=== PATIENT | male | born 1945 | race Caucasian/White ===

== ENCOUNTER → 2020-12-27 12:34 | Outpatient (CLI) | payer MEDICARE, OTHER, SELFPAY ==
--- NOTE | 2020-12-27 12:42 | CT_ITS ---
STUDY: CT SCAN LOWER EXTREMITY LEFT REASON FOR EXAM: Male, 75 years old. KNEE PAIN / OSTEOARTHRITIS.[facility] protocol. RADIATION DOSAGE (If Supplied By Facility): CTDIvol = ( 18.89 ) mGy, DLP = ( 1196.98 ) mGycm. Individualized dose optimization techniques were used for this CT.? TECHNIQUE: Multiple axial tomographic images of the left hip joint, knee joint and ankle joint were obtained. Coronal and sagittal reconstruction was obtained as well. COMPARISON: None. FINDINGS: There is evidence of degenerative changes of the left sacroiliac joint. Moderate degree of joint space narrowing of the right hip joint with evidence of marginal spur formation along the inferior medial aspect of the left femoral head. Imaging of the left knee joint was obtained. There is a marked degree of joint space narrowing with degenerative spur formation involving the medial compartment of the knee joint. There is also evidence of a myhj-yl-[id number] degree of joint space narrowing involving the patellofemoral joint with a prominent spur along the anterior distal femur. There is evidence of fusion in the proximal tibial fibular joint most likely secondary to an exostosis along the posterior aspect of the proximal tibia. 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 Imaging of the ankle joint was obtained. There is a marked degree of joint space narrowing and degenerative changes involving the tibial talar joint. There is abnormal appearance of the distal tibia most likely secondary to prior injury. CT/Extremity Lower without Contra IMPRESSION: Marked degree of joint space narrowing involving the medial compartment of the left knee joint as well as the patellofemoral joint as described. Marked degree of degenerative changes of the tibiotalar joint. 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 A vascular stent is seen within the popliteal artery. Electronically Signed: Gilmer Kennedy MD at 15:25 EDT , Service support ,
== END ==
PROVIDERS: Referring Provider Specialist; Visit Provider Specialist
DX: M17.12 Unilateral primary osteoarthritis, left knee (principal)
CPT/HCPCS: 73700

== ENCOUNTER 2021-01-05 07:03 | Observation (INO) | payer MEDICARE, OTHER, SELFPAY ==
--- NOTE | 2020-12-27 22:59 | PCM.HP.BLA ---
History and Physical History and Physical [facility] Patient Name: Isaías Benedict : 1945 From: GLENNY LOYA PA-C DATE OF SURGERY: 01/05/2021 SCHEDULED PROCEDURE: left total knee arthroplasty HISTORY OF PRESENT ILLNESS: Preoperative history and physical exam was performed on December 27, 2020. This is a 75-year-old male is been having ongoing pain for years in his left knee. He has previous history of a right total knee arthroplasty. His pain has been intermittent, dull, aching, sharp, stabbing, sore. Pain is increased with going up and down stairs and walking. Patient has difficulty with activities of daily living including getting dressed and walking. He states difficulty with sleeping due to the pain. Pain is primarily of the medial knee. Patient has been utilizing a cane for ambulatory assistance. Patient has also attempted rest and water exercises. Patient has tripped/stumbled due to the knee pain. He feels unsafe playing any sports or walking due to the pain. Patient has attempted physical therapy and home exercises with minimal relief. He denies previous surgery on the left knee. He has had left leg surgeries for femoral popliteal bypass. He has been using a cane for the past 9 months. Patient has medical history pertinent for chronic peripheral vascular disease, hypertension, abdominal aortic aneurysm, dyslipidemia, renal artery stenosis, restless legs, type 2 diabetes mellitus, previous history of DVT, neuropathy. We have obtained clearance from vascular doctor in which they do recommend Lovenox bridging prior and after surgery. They also strongly recommend against tourniquet used during his total knee replacement. Patient states he artery has prescription for the Lovenox pre-and post surgery. We have also obtain surgical clearance from the primary care physician. Patient was allowed to stop the Coumadin 5 days before surgery. Patient currently denies any chest pain, shortness of breath, fevers chills, recent infections. His last A1c was 7.9. Daily conservative measures and discussing treatment options with Dr. William Diana, patient does wish to proceed with a left total knee arthroplasty. REVIEW OF SYSTEMS: ROS: Const: Denies change in appetite, fever and weight change. CV: Denies chest pain, heart murmur and irregular heartbeat. Resp: Reports shortness of breath, but denies cough, pneumonia, tuberculosis and wheezing. GI: Denies constipation, diarrhea, heartburn, nausea, rectal itching, bloody stools and vomiting. : Denies incontinence. Musculo: Reports leg swelling, trouble walking and weakness, but denies pain. Skin: Denies Raynaud's, history of shingles and tattoo. Neuro: Reports numbness/tingling but denies ambulatory dysfunction, dizziness and tremor. Psych: Denies anxiety, insomnia and stress. Ruddy/Lymph: Reports bleeding/bruising tendency, but denies anemia and past transfusion. Reviewed and updated. PAST MEDICAL HISTORY: Advance Care Plan: No Advance Directives Effective Date: 12/27/2020 PMH: Medical Problems: Arthritis, Chronic Obstructive Pulmonary Disease (COPD), Diabetes, Hard of Hearing, History Of Blood Clots/ DVT, Kidney Disease/Renal Failure, Vascular Disease/ Peripheral, Neuropathy, Restless Leg Syndrome, Cervical Disc Degeneration, Abdominal Aortic Aneurysm, Atherosclerosis, Erectile Dysfunction, Mesenteric Artery Atenosis, Renal Artery Stenosis, Iliac Aneurysm, Stenosis Of Celiac Artery Accidents: Fracture - (1972) LT ANKLE Surgical Hx: Cataracts - (2016) LT EYE- Hernia Repair - UMBILICAL AND INGUINAL Carotid Endarterectomy Femoral Popiteal Bypass - (2017) [facility] Procedure - (2019) LT LEG Carpal Tunnel Release LT - (2018) Lumbar Fusion - DISCECTOMY Knee Replacement RT - (2012) [facility] DR. Cecelia ORTEGA Elbow Arthroscopy - REMOVAL OF FOREIGN BODIES LT Ankle - (1972) RECONSTRUCTION Anesthesia Complications: None Assistive Devices: Cane, Hearing Aid Reviewed and updated. SOCIAL HISTORY: SH: Marital: .Occupation: Retired.Work Status: Retired.Hand Dominance: Ambidextrous. Personal Habits: Cigarette Use: Former.Smokeless Tobacco: Never Used Smokeless Tobacco.E-Cigarette Use: Never used.Alcohol: Has consumed alcohol in the past.Drug Use: Denies Use.Enjoy Exercising: Exercises 1-3 X/Week. Reviewed and updated. VITALS: Ht: 73.9 Wt: 297lb Wt k.719 BMI: 38.2 BP: 142/88 Pulse: 82 Resp: 14 T: 97.5 T: 36.4C Pain Level: 1 ALLERGIES: No Known Drug Allergy MEDICATIONS: Metformin HCL 1000 mg 1 by mouth once daily at dinner, Lantus Insulin 40 Units 30 units once at bedtime, Pravastatin Sodium 80 mg 1 by mouth every day, Losartan Potassium 50 mg 1 by mouth every day, Flomax 0.4 mg 1 by mouth every day, Gabapentin 300 mg 1 by mouth three times a day, Jantoven 6 mg, Jantoven 1 mg, Furosemide 20 mg 1 by mouth every day, Potassium Chloride 10 Meq/50ML, Novolog daily PRE-OP EXAM: General appearance:NORMAL Other: Eyes: Conjunctivae and lids: NORMAL Pupils: ERR Ears, Nose, Mouth, and Throat: NORMAL Other: Inspection of lips, teeth and gums: NORMAL Other: Neck: Examination of neck: no masses noted. Respiratory: Assessment of respiratory effort: NORMAL Other: Auscultation of lungs: clear to auscultation no wheezes, rhonchi or rales. Cardiovascular: Auscultation of heart: regular rate and rhythm, no murmurs, gallops or rubs. Exam of carotid arteries: NORMAL Other: Gastrointestinal: Exam of abdomen: soft, nontender, nondistended bowel sounds present. PHYSICAL EXAMINATION: Patient does walk with an antalgic gait. Left knee is cool to touch that erythema or signs of infection. He has tenderness to palpation along the medial joint line. He has varus alignment. Range of motion: Lacks 20 full extension to 103 flexion. IMAGING STUDIES: X-rays of the left knee reveal varus alignment with medial joint space narrowing, subchondral sclerosis, osteophyte formation consistent with severe left knee osteoarthritis. IMPRESSION: 1. Severe left knee osteoarthritis 2. Type 2 diabetes mellitus 3. Chronic peripheral vascular disease 4. Hypertension 5. Hyperlipidemia 6. History of DVT 7. Neuropathy 8. Restless leg 9. Renal artery stenosis 10. History of abdominal aortic aneurysm PLAN: Dr. William Diana did discuss and review with the patient all treatment options including surgical versus nonsurgical options. Patient does wish to proceed with the above-stated procedure. Potential risks, benefits, and complications of the procedure were discussed in detail including but not limited to , infection, nerve and blood vessel damage, persistent pain, numbness, tingling, paresthesias, blood clot, pulmonary embolism, and requirement for possible further surgery. The patient expressed full understanding and has no further questions for the doctor. Patient does agree to proceed with the above-stated procedure and has signed the surgery consent form. We discussed the current risks associated with COVID 19. This does include the risk of exposure while in the hospital. Patient was reassured local hospitals have low infection rates and are taking all necessary precautions to avoid exposure to patients. In addition, we discussed strategies that can be used to help limit exposure including those that limit the patient's time in the hospital. Also using strategies to limit the patient's need for continued inpatient services after being discharged from the hospital. Patient was notified that we will need to comply with any screening or testing the hospital wishes to perform or that surgery may be delayed for any positive results. This dictation was created using voice recognition software. Phonetic and/or grammatical errors may exist. ___ I have re-examined the patient. There are no clinical changes since date of exam. ___ See progress notes for changes. ___ Dictated on admission Date: Time: Signature:
[2021-01-05] VITALS (16 sets, daily range): BP systolic 112–165; BP diastolic 55–91; PULSE 66–96; RESP 16–18; TEMP 36.1–36.8; O2SAT 92–99; BMI 36.5
[2021-01-05] MEDS: Lactated Ringers 1,000 ML 999 ML IV ×2 (05:45→10:00)
[2021-01-05] MEDS: Acetaminophen 500 MG Tablet 1000 MG PO ×3 (06:35→23:13)
[2021-01-05] MEDS: Gabapentin 600 MG Tablet PO (06:35)
--- NOTE | 2021-01-05 07:01 | OP.PCM_ITS ---
Report of Operation Date of Procedure: 01/05/21 Post-Operative Diagnosis: Left knee primary osteoarthritis Surgery/Procedure Performed:: Left knee minimally invasive Tourniquet lessrobotic assisted total knee replacement Description of Surgical Findings:: Stable knee with good patella tracking Surgeon: William Diana dairy equipment mechanic: Mingo Rice Type of Anesthesia: General Anesthesiologist: Brian Avelar Special Medications: 2 g Ancef, 2 g TXA lavage prior to closure, 10 mg Decadron, joint cocktail (5 mg Duramorph, 30 mL of 0.5% Ropivicaine, 1000 units of epinephrine, 30 mg of Toradol) Specimen's removed: Bony cuts Estimated Blood Loss (mL): 250 Fluids Replaced: 1200 mL crystalloid Description of Procedure: Implants used: 1. [place] size 7 triathlon cruciate retaining distal femoral press-fit component 2. Surjit size 7 press-fit tritanium tibial baseplate 3. Surjit X3 9 MM CS polyethylene 4. Surjit X3 40 MM asymmetric patella Brief history operative indications: 75-year-old M with history of left knee osteoarthritis with radiographic findings with loss of joint space, osteophyte formation and subchondral sclerosis. Failed conservative measures as mentioned in the H&P. Discussion of total knee arthroplasty as well as risk and benefits were discussed the patient including but not limited to blood loss, DVTs, PEs, neurovascular damage, general risk of anesthesia including loss of life, and stiffness or instability were discussed with patient. Patient demonstrated understanding and was able to sign informed consent. Procedure: On the date of procedure patient's left lower extremity was marked in the preoperative area. The patient was then taken back to the operating room where the patient was placed on the table in the supine position. All bony prominences were identified a well-padded. Anesthesia assumed control of the C-spine and airway and remained controlled throughout the remainder of the procedure. A tourniquet was loosely placed on the left upper thigh in the event that it was needed for emergency purposes and the leg was prepped in a sterile fashion. The surgeon then scrubbed at this time .Upon reentering the room left lower extremity was draped in a standard orthopedic fashion. A timeout was then called and everyone agreed upon the side, the site, the procedure to be performed, patient's identity and antibiotics given. Due to the patient's significant peripheral vascular disease we elected to proceed with a tourniquet was total knee replacement. A midline skin incision was made and sharp dissection was taken down through skin subcutaneous tissue and fat. The standard medial parapatellar incision was made and the patella was subluxed laterally. An Appropriate deep MCL release was done and the fat pad was resected. Our attention was then directed to the patella. The patella was everted and a flat resection was made. The knee was then flexed up in 2 femoral pins were placed inside the incision and 2 tibial pins were placed outside the incision in the medial tibia bicortically. Once this was completed the 2 checkpoints in the femur and tibia were placed. Knee was then flexed up and the bony landmarks were registered. Once this was completed knee was taken through range of motion and manually stressed allowing us to a plan for an appropriate tibial cut. The robotic arm was brought into the field sterilely and checkpoint and saw were registered. Based on the patient's deformity the tibial cut was made in 1 degree of varus. At this time the tensioner was then placed in the joint and ligament tension was checked at 90 degrees and full extension. Based on the patient's ligamentous tension appropriate adjustments were made to the operative plan and ligament releases were done. Once we were happy with our operative plan with balanced flexion and extension gaps our attention was directed to the femur. The robot was brought into the field sterilely and registered. Posterior condylar cuts, anterior chamfer cuts and anterior cuts were appropriately made for a size 7 femur. When these were completed the saws were switched out in the distal femoral and posterior chamfer cuts were made. Protecting the soft tissue throughout this time. A size 7 tibial base plate was selected. the knee was flexed to 90 degrees and the soft tissues and posterior osteophytes were removed from the joint. 40 cc of the periarticular injection was injected into the posterior medial corner of the joint. The appropriate trials were then placed on the femur and tibia. A trial polyethylene was trialed to ensure proper balancing and stability of the knee. The appropriate tibial internal rotation was then marked with a bovie. Our attention was then directed to the patella. The lug holes were drilled and the patella trial was placed. Patellar tracking was checked and deemed appropriate. Once we were happy lug holes were drilled for the femur and trial components were removed. the tibia was subluxed and pinned into place and the keel was punched and drilled appropriately. Final components were verified and opened, and cement was mixed in a vacuum. [employer] Simplex cement was used. The wound was copiously irrigated with normal saline. When the cement was ready the components were impacted into place starting with the tibia, femur and finally cementing the patella. The trial poly component was placed and the knee was placed in full extension. All excess cement was removed in the process. Once the cement had cured the tracking, alignment and balance were verified and a size 9 mm CS polyethylene component was placed. Once the final components were placed a 3-minute dilute Betadine lavage was performed followed by an Irrisept lavage was performed and the wound was copiously irrigated with normal saline solution and the periarticular injection was given. The wound was closed in a layer france fashion using #1 vicryl interrupted sutures for the arthrotomy, 2-0 interrupted Vicryl suture for the subcuticular layer and mirela for final skin closure. A sterile compressive dressing was then placed. The patient was then awakened from anesthesia, transferred to the rpekin and transferred to the PACU for recovery. Post op plan DVT ppx: ASA 81mg BID, thigh high compression stockings Follow up: in office in 2 weeks for wound check PT: to start POD #0 at hospital, outpatient PT should be arranged. My physician assistant professor was a vital part of this case. He was important in appropriate retraction during the case, and protection of soft tissues during bony cuts. His intimate knowledge of the case and my steps aided in safe and e xpedient completion of the procedure as well as appropriate position of the leg during the case. He was also vital in assisting with closure under my direct supervision. Due to the complexity of this case robotic arm was used to assist in the surgery to improve accuracy and clinical outcomes. Complications No intraoperative complications Admit VTE Documentation VTE Present on Admission: No VTE Mechan Device Prophylaxis: SCD's and Thigh High JOSE Hose VTE Pharm Prophylaxis ordered?: Yes
[2021-01-05 07:05] LABS: Bedside Glucose 162 mg/dL (70-110)
--- NOTE | 2021-01-05 07:05 | RAD_ITS ---
STUDY: X-RAY - LEFT KNEE REASON FOR EXAM: Postoperative evaluation of left total knee arthroplasty. TECHNIQUE: 2 view(s) of the knee. COMPARISON: CT images 12/27/2020. FINDINGS: There is a left total knee arthroplasty without evidence of complication. There is postoperative gas in the soft tissues and overlying skin mirela. There is vascular calcification and a vascular stent. RAD/Knee 1 or 2 Views IMPRESSION: Uncomplicated left total knee arthroplasty. Electronically Signed: Kevin Recinos MD at 11:09 EDT Tel , Service support ,
[2021-01-05 07:35] LABS: International Normalized Ratio 1.1
[2021-01-05 07:41] LABS: INR Fingerstick 3.2; Prothrombin Time Fingerstick 35.5 SEC (11.9-14.4)
[2021-01-05] MEDS: Insulin Lispro 100 UNIT/ML INSULN.PEN SC ×3 (11:22→23:11)
[2021-01-05 11:35] LABS: Bedside Glucose 223 mg/dL (70-110)
[2021-01-05] MEDS: Lactated Ringers 1,000 ML 125 ML IV ×2 (12:01→20:59)
[2021-01-05] MEDS: Tamsulosin HCl 0.4 MG Capsule 0.8 MG PO (13:08)
[2021-01-05] MEDS: Famotidine 20 MG Tablet PO (13:09)
[2021-01-05] MEDS: metFORMIN HCl 1,000 MG Tablet 1000 MG PO (13:09)
[2021-01-05] MEDS: Ensure Surgery 237 ML LIQUID PO ×2 (13:09→16:42)
[2021-01-05] MEDS: Senna/Docusate Sodium 1 Tablet 2 TABLET PO ×2 (13:10→23:13)
[2021-01-05] MEDS: Pravastatin 80 MG Tablet PO (13:10)
[2021-01-05] MEDS: Furosemide 20 MG Tablet PO (13:10)
[2021-01-05] MEDS: Gabapentin 300 MG Capsule PO ×2 (14:22→23:13)
--- NOTE | 2021-01-05 14:35 | PCM.PN.HOSP ---
Subjective Subjective Consult for post-op medical management: 75-year-old male with past medical history of CVA type II DM, hypertension, PAD status post grafts and stents, abdominal aortic aneurysm, hyperlipidemia who comes in for elective left knee replacement. Patient has had progressive difficulty with activities of daily living. Patient was seen in the immediate postop. He denied any chest pain or dizziness or palpitations. His pain was fairly controlled. He was getting ready to exercise with PT and OT Objective Data Objective Data Vital Signs: Vital Signs Temp Pulse Resp BP Pulse Ox 97.6 F L 66 16 141/57 H 96 01/05/21 14:25 01/05/21 14:25 01/05/21 14:25 01/05/21 14:25 01/05/21 14:25 Oxygen Flow Rate (L/min) 2 Oxygen Delivery Method Room Air Weight: 136.2 kg Body Mass Index (BMI) 36.5 Intake & Output: Intake and Output for Last 24 Hours 01/03/21 01/04/21 01/05/21 23:59 23:59 23:59 Intake Total 3641.25 / 3641.25 Balance 3641.25 / 3641.25 Lab / Micro Data Labs: Laboratory Results - last 24 hr 01/05/21 06:13: POC Glucose 162 H 01/05/21 07:07: POC PT 35.5 H, INR 3.2 01/05/21 07:14: PT 14.0, INR 1.1 01/05/21 11:09: POC Glucose 223 H Micro: Microbiology 12/31/20 08:22 Swab (Method) Nasal Screen MRSA/MSSA - Final Radiography Diagnostic Testing: Radiology Impression Knee X-Ray 01/05/21 07:05 IMPRESSION: Uncomplicated left total knee arthroplasty. Electronically Signed: Kevin Recinos MD at 11:09 EDT Tel , Service support , Physical Exam Narrative Physical exam: General: Alert, Oriented x3, Cooperative, No apparent distress, Well developed, obese HEENT: Atraumatic Oral: Moist Mucosa Neck: Supple Lungs: Clear to auscultation Cardiovascular: HS I+II, regular, no murmurs Abdomen: Bowel Sounds Present, Soft, Non Tender Extremities: Left knee dressing intact,: Simply Assessment & Plan Assessment/Plan (1) Status post left knee replacement: PLAN: 1. POD #0 status post left knee replacement, pain is controlled Continue with orthopedic recommendations, PT/OT to evaluate and treat 2. Hypertension, controlled, continue on losartan 3. Type II DM, complicated by peripheral neuropathy ,controlled, Continue on Lantus, hold Metformin, continue with insulin sliding scale Continue on gabapentin 4. Rest of his chronic medical conditions -PAD status post implants and grafts/abdominal aortic aneurysm/hyperlipidemia/BPH- remain stable 5. DVT PPx- on warfarin Charges/Coding Visit Charges Inpatient E&M: 53830 Init Hosp L2
[2021-01-05] MEDS: Insulin Lispro 100 UNIT/ML INSULN.PEN 10 UNIT SC (16:42)
[2021-01-05 16:50] LABS: Bedside Glucose 323 mg/dL (70-110)
[2021-01-05 18:17] LABS: Anion Gap 7 (5-15); BUN 21 mg/dL (7-18); BUN/Creat Ratio 18.9 RATIO (10-20); Calcium,Total 7.9 mg/dL (8.5-10.1); Chloride 104 mmol/L (98-107); Creatinine, Serum 1.11 mg/dL (0.70-1.30); EST Glomerular Filtration Rate 68 mL/min (>60); Est Glom Filt Rate - Afr Amer 83 mL/min (>60); Estimated Creatinine Clearance 68.42 ml/min; Glucose 299 mg/dL (74-106); Potassium 5.2 mmol/L (3.5-5.1); Sodium Level 136 mmol/L (136-145)
[2021-01-05 23:05] LABS: Bedside Glucose 168 mg/dL (70-110)
[2021-01-05] MEDS: 0.9% Saline Lock 10 ML Syringe IV ×2 (23:12→23:35)
[2021-01-06 03:45] VITALS: BP 145/77; PULSE 70; RESP 18; TEMP 36.4; O2SAT 96
[2021-01-06] MEDS: Lactated Ringers 1,000 ML 125 ML IV (06:07)
[2021-01-06] MEDS: Acetaminophen 500 MG Tablet 1000 MG PO ×2 (06:11→14:01)
[2021-01-06] MEDS: Gabapentin 300 MG Capsule PO ×2 (06:12→14:01)
[2021-01-06] MEDS: 0.9% Saline Lock 10 ML Syringe IV (06:12)
[2021-01-06 07:05] LABS: Hematocrit 31.3 % (40-54); Hemoglobin 10.1 g/dL (13.0-16.5); Mean Corp Hgb Conc 32.3 g/dL (32-36); Mean Corpuscular Hgb 31.3 pg (27.0-32.0); Mean Corpuscular Volume 96.9 fL (80-94); Mean Platelet Vol. 10.2 fl (6.2-12.0); Platelet Count 121 K/mm3 (150-450); RBC Distribution Width CV 14.6 % (11.6-14.6); RBC Distribution Width SD 52.1 fl (35.1-43.9); Red Blood Count 3.23 M/mm3 (4.6-6.2); White Blood Count 7.2 K/mm3 (4.4-11.0)
[2021-01-06 07:23] LABS: International Normalized Ratio 1.1; Prothrombin Time (Protime)PT. 13.9 SECONDS (11.7-14.9)
[2021-01-06 07:31] LABS: Anion Gap 4 (5-15); BUN 18 mg/dL (7-18); BUN/Creat Ratio 22.3 RATIO (10-20); Calcium,Total 7.9 mg/dL (8.5-10.1); Chloride 109 mmol/L (98-107); Creatinine, Serum 0.81 mg/dL (0.70-1.30); EST Glomerular Filtration Rate 99 mL/min (>60); Est Glom Filt Rate - Afr Amer 119 mL/min (>60); Estimated Creatinine Clearance 93.77 ml/min; Glucose 124 mg/dL (74-106); Potassium 4.4 mmol/L (3.5-5.1); Sodium Level 140 mmol/L (136-145)
[2021-01-06 08:11] VITALS: BP 129/53; PULSE 65; RESP 16; TEMP 36.7; O2SAT 96
[2021-01-06] MEDS: Insulin Lispro 100 UNIT/ML INSULN.PEN 10 UNIT SC ×2 (08:14→12:48)
[2021-01-06] MEDS: Ensure Surgery 237 ML LIQUID PO ×2 (08:15→12:48)
--- NOTE | 2021-01-06 09:04 | PN.ORTHO_ITS ---
Subjective Subjective The patient was sitting in bedside chair upon examination. Patient denies any chest pain, shortness of breath, dizziness, lightheadedness, nausea or vomiting, or calf pain. Pain is controlled on medications. No adverse overnight events. Overall patient is doing very well. He states he has been walking the halls. He did have drainage over the distal pin site dressing which did saturate some of the JOSE hose. He has no complaints today. He is wanting to go home today. Objective Data Objective Data Vital Signs: Vital Signs Temp Pulse Resp BP Pulse Ox 98.0 F 65 16 129/53 H 96 01/06/21 08:11 01/06/21 08:11 01/06/21 08:11 01/06/21 08:11 01/06/21 08:11 Oxygen Flow Rate (L/min) 2 Oxygen Delivery Method Room Air Weight: 136.2 kg Body Mass Index (BMI) 36.5 Intake & Output: Intake and Output for Last 24 Hours 01/04/21 01/05/21 01/06/21 23:59 23:59 23:59 Intake Total 4310.42 / 4425.42 1390 / 1390 Output Total 1300 / 1300 785 / 785 Balance 3010.42 / 3125.42 605 / 605 Lab / Micro Data Result Diagrams: 01/06/21 06:45 01/06/21 06:45 Labs: Laboratory Results - last 24 hr 01/05/21 11:09: POC Glucose 223 H 01/05/21 16:14: POC Glucose 323 H 01/05/21 17:40: Sodium 136, Potassium 5.2 H, Chloride 104, Carbon Dioxide 25.0, Anion Gap 7, BUN 21 H, Creatinine 1.11, Estim Creat Clear Calc 68.42, Est GFR (MDRD) Af Amer 83, Est GFR (MDRD) Non-Af 68, BUN/Creatinine Ratio 18.9, Glucose 299 H, Calcium 7.9 L 01/05/21 22:57: POC Glucose 168 H 01/06/21 06:45: WBC 7.2, RBC 3.23 L, Hgb 10.1 L, Hct 31.3 L, MCV 96.9 H, MCH 31.3, MCHC 32.3, RDW Std Deviation 52.1 H, RDW Coeff of Oma 14.6, Plt Count 121 L, MPV 10.2 01/06/21 06:45: Sodium 140, Potassium 4.4, Chloride 109 H, Carbon Dioxide 27.0, Anion Gap 4 L, BUN 18, Creatinine 0.81, Estim Creat Clear Calc 93.77, Est GFR (MDRD) Af Amer 119, Est GFR (MDRD) Non-Af 99, BUN/Creatinine Ratio 22.3 H, Glucose 124 H, Calcium 7.9 L 01/06/21 06:45: PT 13.9, INR 1.1 Micro: Microbiology 12/31/20 08:22 Swab (Method) Nasal Screen MRSA/MSSA - Final Radiography Diagnostic Testing: Radiology Impression Knee X-Ray 01/05/21 07:05 IMPRESSION: Uncomplicated left total knee arthroplasty. Electronically Signed: Kevin Recinos MD at 11:09 EDT Tel , Service support , Physical Exam Narrative Vital signs stable and afebrile. Patient is able to plantarflex and dorsiflex actively. Sensation is intact to light touch to saphenous, sural, superficial and deep peroneal, and tibial distribution. Main dressing is clean dry and intact. The distal pin site dressing is completely saturated. This was removed. Drainage was old with dried bloody discharge. No active drainage. JOSE hose was removed and patient will require new JOSE hose. New dressing was placed over the distal pin site. Negative Homans bilaterally, negative signs and symptoms of DVT. Const alert, oriented x3 and no apparent distress Assessment & Plan Assessment/Plan (1) Status post left knee replacement: PLAN: 1. S/P left total knee arthroplasty POD #1 2. Continue Pain Medications: Tylenol and oxycodone 3. DVT Prophylaxis: Patient has been placed back on his Coumadin. He already has Lovenox from his primary care physician in which she will continue to take until he is at therapeutic levels. Patient is from [place] and we will repeat INR in 1 week. 4. PT/OT: Weightbearing as tolerated with walker 5. H & H: 10.1/31.3, asymptomatic. Postoperative anemia secondary to acute blood loss from surgery without any intra operative complications. 6. Thrombocytopenia: Currently 121, preoperatively platelets were at 161. We will have patient repeat CBC in 1 week. 7. Encouraged Incentive Spirometry 8. Continue postoperative medical management per medicine 9. Disposition: Patient is doing very well from an orthopedic standpoint. He has already placed back on his Coumadin. He has bridging of Lovenox which is currently being managed by his primary care physician. He has those Lovenox inj ections for postoperatively. At this time we will repeat INR and CBC 1 week postoperatively. Order will be placed. Plan will be for patient to be discharged today as long as he is medically stable, pain is well controlled, and tolerates therapy. Prescriptions will be E scribed to [facility]. He has outpatient physical therapy established. He will follow-up per postop instructions.\ I have reviewed the [place] Automated Rx Reporting System (OARRS) report for this patient for refill pattern and other prescriber involvement as part of the appropriate surveillance for the provision of acute and chronic controlled medications. The report was requested and reviewed on the date of this entry and was considered in the prescribing process.
--- NOTE | 2021-01-06 09:09 | PCM.DC ---
Discharge Instructions Diet Discharge Diet: No restrictions Activity Discharge Activity: May Not Drive (while taking narcotic pain medications.) May shower in (days): 1 (Please turn dressing away from water. Okay to get wet as long as dressing is intact to skin.) Ice area for (Minutes): 20 (Every 1-2 hours while awake[address] place barrier between the skin and ice pack.) Weight Bearing Status: Weight bearing as tolerated Keep extremity elevated above heart level: Operative Extremity Dressing / Incision Call your doctor if your incision/area has: Continuous Slow Oozing, Sudden Increased Bleeding, Increased Pain/ Swelling, Increased Redness and Foul Smelling Discharge Call your doctor if you observe: Fever of 101 or Higher, Coldness, Increased Pain, Numbness or Tingling, Change in Color, Shortness of breath, Chest pain, Calf discomfort and Uncontrolled pain Remove Dressing in: 4 days (Okay to remove dressing on January 10, 2021) Additional Dressing/Incision Instructions:: Follow [facility] Post-op Instructions. Once postoperative dressing has been removed only use gentle soap and water over the incision. Do not use any ointments, Neosporin, salves, alcohol pads over the incision for 6 weeks postoperatively. Do not submerge underwater for 6 weeks postoperatively. Continue with JOSE hose/elastic stockings for 2 weeks postoperatively. May remove at nighttime but needs to be placed back on the leg during the day. Do NOT use alcohol with narcotic pain medication. Do NOT make important decisions while taking narcotic medication. If you have problems with taking your medication (rash, itching, nausea, etc.) call the office at once. Continue bridging of Lovenox until he has reached therapeutic levels with his Coumadin treatment. He will follow back with his primary care physician. Follow Up Care Test Results: Test results from this visit will be discussed in further detail at your follow-up appointment, if applicable. Discharge Plan Admission Admit Date/Time: 01/05/21 07:03 Attending Provider: William Diana Consulting Providers: Allyson Amaya Instructions Additional Instructions / Restrictions: Will require outpatient lab work for CBC and INR in 1 week Discharge Orders/Prescriptions Prescriptions: New acetaminophen 500 mg Tablet 1,000 mg PO TID 14 Days Qty: 84 RF: 0 oxycodone 5 mg Tablet 5 - 10 mg PO Q4H PRN PRN (Reason: Pain Score 4-10) 7 Days Qty: 42 RF: 0 sennosides-docusate sodium [Stool Softener-Stimulant Laxat] 8.6-50 mg Tablet 2 tab PO BID Qty: 14 RF: 0 Continued losartan 50 mg Tablet 50 mg PO DAILY RF: 0 potassium chloride 10 mEq Capsule, Extended Release 10 meq PO DAILY RF: 0 warfarin [Jantoven] 6 mg Tablet 6 mg PO DAILY RF: 0 pravastatin 80 mg Tablet 80 mg PO DAILY RF: 0 tamsulosin [Flomax] 0.4 mg Capsule 0.8 mg PO DAILY RF: 0 insulin aspart U-100 [Novolog U-100 Insulin aspart] 100 unit/mL Solution 10 unit SUBCUT TID RF: 0 metformin 1,000 mg Tablet 1,000 mg PO DAILY RF: 0 gabapentin 300 mg Capsule 300 mg PO TID RF: 0 furosemide 20 mg Tablet 20 mg PO DAILY RF: 0 warfarin [Jantoven] 1 mg Tablet 1 mg PO DAILY RF: 0 enoxaparin [Lovenox] 100 mg/mL Syringe 200 mg SUBCUT DAILY RF: 0 insulin glargine 100 unit/mL (3 mL) Insulin Pen 30 unit SUBCUT QPM RF: 0 Other Ambulatory Orders: CBC-Complete Blood Cnt No Diff (Routine) Timeframe: 1 Week Facility: [facility] - Location: Laboratory Ordered By: Mingo DOMINIQUE Prothrombin Time w/INR (Routine) Timeframe: 1 Week Facility: [facility] - Location: Laboratory Ordered By: Mingo DOMINIQUE Referrals / Follow Up: ROBIN BARRERA [Other] physical,therapy [Other] - 01/10/21 7:00 am William Diana MD [STAFF PHYSICIAN] - 01/20/21 9:15 am Disposition Disposition (needs filled in before D/C Order can be placed): Home, Self Care
[2021-01-06 10:06] LABS: Bedside Glucose 132 mg/dL (70-110)
[2021-01-06] MEDS: Famotidine 20 MG Tablet PO (10:17)
[2021-01-06] MEDS: Tamsulosin HCl 0.4 MG Capsule 0.8 MG PO (10:17)
[2021-01-06] MEDS: Senna/Docusate Sodium 1 Tablet 2 TABLET PO (10:17)
[2021-01-06] MEDS: Furosemide 20 MG Tablet PO (10:17)
[2021-01-06] MEDS: Pravastatin 80 MG Tablet PO (10:17)
[2021-01-06] MEDS: Losartan Potassium 50 MG Tablet PO (10:17)
[2021-01-06] MEDS: Enoxaparin 100 MG/ML Syringe 200 MG SC (10:19)
[2021-01-06 10:20] VITALS: PULSE 100
--- NOTE | 2021-01-06 11:45 | CASEMGMT ---
PEREZ TORRES Face to Face with patient for initial transition planning/care coordination assessment. RN MELISSA introduced self and role at [facility]. Patient lying in bed, alert and oriented, at bedside. Patient willing to participate in assessment and is able to answer all questions appropriately. Care providers, pharmacy, and demographics verified. Patient wishes to discharge home and is setup with [facility] for outpatient therapy. Patient states he has no further needs or concerns at this time. CM to follow for discharge planning needs that may arise. PCP: Kathy Shah [employer] Specialists: edna Diana Preferred Pharmacy: [facility] retail Insurance: [employer] Prescription Benefit: yes Living Will/HPOA: yes, Danielle Benedict LNOK: , daughter Living Arrangements: Patient lives in [place] but will be staying with daughter in [place] for 2 weeks. Daughter lives in a 1 story home with 2 steps to enter. Patient states he was independent at home. Transportation: /daughter DME/HHC: Patient has walker with him here. Back in [place], patient has shower chair, grab bars, raised toilet seat, cane, walker. Patient is scheduled to start outpatient therapy on Sunday at [facility] Disposition Plan: Patient to discharge home with outpatient therapy, family support, and follow-up plans in place. Lianne GAY, RN, CM
--- NOTE | 2021-01-06 11:49 | CASEMGMT ---
PEREZ CM in to complete LUTHER form with patient. RN MELISSA explained LUTHER form to patient, patient voiced understanding. Patient signed LUTHER form and filed in chart. Patient provided with copy of signed LUTHER form. Patient had no further questions or concerns at this time.
--- NOTE | 2021-01-06 12:12 | PCM.PN.HOSP ---
Subjective Subjective Patient was seen and examined. Denied any new complaints. He has been working with therapy. Denied any fever or chills. Objective Data Objective Data Vital Signs: Vital Signs Temp Pulse Resp BP Pulse Ox 98.0 F 100 16 129/53 H 96 01/06/21 08:11 01/06/21 10:20 01/06/21 08:11 01/06/21 08:11 01/06/21 08:11 Oxygen Flow Rate (L/min) 2 Oxygen Delivery Method Room Air Weight: 136.2 kg Body Mass Index (BMI) 36.5 Intake & Output: Intake and Output for Last 24 Hours 01/04/21 01/05/21 01/06/21 23:59 23:59 23:59 Intake Total 4310.42 / 4425.42 1390 / 1390 Output Total 1300 / 1300 785 / 785 Balance 3010.42 / 3125.42 605 / 605 Lab / Micro Data Result Diagrams: 01/06/21 06:45 01/06/21 06:45 Labs: Laboratory Results - last 24 hr 01/05/21 16:14: POC Glucose 323 H 01/05/21 17:40: Sodium 136, Potassium 5.2 H, Chloride 104, Carbon Dioxide 25.0, Anion Gap 7, BUN 21 H, Creatinine 1.11, Estim Creat Clear Calc 68.42, Est GFR (MDRD) Af Amer 83, Est GFR (MDRD) Non-Af 68, BUN/Creatinine Ratio 18.9, Glucose 299 H, Calcium 7.9 L 01/05/21 22:57: POC Glucose 168 H 01/06/21 06:45: WBC 7.2, RBC 3.23 L, Hgb 10.1 L, Hct 31.3 L, MCV 96.9 H, MCH 31.3, MCHC 32.3, RDW Std Deviation 52.1 H, RDW Coeff of Oma 14.6, Plt Count 121 L, MPV 10.2 01/06/21 06:45: Sodium 140, Potassium 4.4, Chloride 109 H, Carbon Dioxide 27.0, Anion Gap 4 L, BUN 18, Creatinine 0.81, Estim Creat Clear Calc 93.77, Est GFR (MDRD) Af Amer 119, Est GFR (MDRD) Non-Af 99, BUN/Creatinine Ratio 22.3 H, Glucose 124 H, Calcium 7.9 L 01/06/21 06:45: PT 13.9, INR 1.1 01/06/21 08:12: POC Glucose 132 H Micro: Microbiology 12/31/20 08:22 Swab (Method) Nasal Screen MRSA/MSSA - Final Physical Exam Narrative Physical exam: General: Alert, Oriented x3, Cooperative, No apparent distress, Well developed, obese HEENT: Atraumatic Oral: Moist Mucosa Neck: Supple Lungs: Clear to auscultation Cardiovascular: HS I+II, regular, no murmurs Abdomen: Bowel Sounds Present, Soft, Non Tender Extremities: Left knee dressing intact,: Simply Assessment & Plan Assessment/Plan (1) Status post left knee replacement: PLAN: 1. POD #1 status post left knee replacement, pain is controlled, patient is ambulating down the halls Continue with orthopedic recommendations, PT/OT to evaluate and treat 2. Hypertension, controlled, continue on losartan 3. Type II DM, complicated by peripheral neuropathy ,controlled, Continue on Lantus, okay to resume Metformin at discharge, continue with insulin sliding scale Continue on gabapentin 4. Rest of his chronic medical conditions -PAD status post implants and grafts/abdominal aortic aneurysm/hyperlipidemia/BPH- remain stable 5. DVT PPx- on warfarin/Lovenox bridging; INR is 1.1 Okay for discharge from medical standpoint Charges/Coding Visit Charges Inpatient E&M: 55759 Subs Hosp L2
[2021-01-06] MEDS: Potassium Chloride Oral Tablet 10 MEQ PO (12:52)
[2021-01-06 14:13] VITALS: BP 122/54; PULSE 100; RESP 18; TEMP 37.2; O2SAT 98
== END 2021-01-06 14:40 | disposition home or self-care (01) ==
LOC: SDC 11:55 → MS3 11:55
PROVIDERS: Anesthesiology; Internal Medicine; Admitting Provider Specialist; Referring Provider Specialist; Visit Provider Specialist
PROC: 0SRD0JZ Replacement of Left Knee Joint with Synthetic Substitute, Open Approach (ICD-10-PCS; CPT 27447; principal; 2021-01-05 07:00)
DX: M17.12 Unilateral primary osteoarthritis, left knee (principal); E11.9 Type 2 diabetes mellitus without complications; E11.51 Type 2 diabetes mellitus with diabetic peripheral angiopathy without gangrene; E11.42 Type 2 diabetes mellitus with diabetic polyneuropathy; E78.5 Hyperlipidemia, unspecified; I10 Essential (primary) hypertension; G25.81 Restless legs syndrome; J44.9 Chronic obstructive pulmonary disease, unspecified; I70.1 Atherosclerosis of renal artery; Z87.891 Personal history of nicotine dependence; Z79.899 Other long term (current) drug therapy; Z86.718 Personal history of other venous thrombosis and embolism; Z79.01 Long term (current) use of anticoagulants; Z79.4 Long term (current) use of insulin; Z86.73 Personal history of transient ischemic attack (TIA), and cerebral infarction without residual deficits; N40.0 Benign prostatic hyperplasia without lower urinary tract symptoms; D69.6 Thrombocytopenia, unspecified
CPT/HCPCS: 01402; 27447; 64447; S2900; 36415; 36416; 73560; 80048; 82962; 83735; 85027; 85610; 87081; 96361; 96365; 96366; 96372; 97110; 97162; 97166; 97530; 97535; 99218; 99251; C1776; J7120; A4216; G0378; G0463; J2405

== ENCOUNTER → 2021-01-07 10:58 | Outpatient (CLI) | payer MEDICARE, OTHER, SELFPAY ==
[2021-01-07 11:41] LABS: International Normalized Ratio 1.2; Prothrombin Time (Protime)PT. 14.9 SECONDS (11.7-14.9)
== END ==
DX: Z95.820 Peripheral vascular angioplasty status with implants and grafts (principal)
CPT/HCPCS: 36415; 85610

== ENCOUNTER 2021-01-14 08:42 | Outpatient (RCR) | payer MEDICARE, OTHER, SELFPAY ==
[2021-01-08 12:08] LABS: International Normalized Ratio 1.2; Prothrombin Time (Protime)PT. 14.3 SECONDS (11.7-14.9)
[2021-01-10 09:58] LABS: Hematocrit 28.7 % (40-54); Hemoglobin 9.4 g/dL (13.0-16.5); Mean Corp Hgb Conc 32.8 g/dL (32-36); Mean Corpuscular Hgb 31.8 pg (27.0-32.0); Mean Platelet Vol. 10.6 fl (6.2-12.0); Platelet Count 196 K/mm3 (150-450); RBC Distribution Width CV 15.5 % (11.6-14.6); RBC Distribution Width SD 55.1 fl (35.1-43.9); Red Blood Count 2.96 M/mm3 (4.6-6.2); White Blood Count 6.9 K/mm3 (4.4-11.0)
[2021-01-10 10:08] LABS: International Normalized Ratio 1.5
[2021-01-12 08:53] LABS: Prothrombin Time (Protime)PT. 22.3 SECONDS (11.7-14.9)
[2021-01-14 09:44] LABS: Hematocrit 31.2 % (40-54); Hemoglobin 9.8 g/dL (13.0-16.5); Mean Corp Hgb Conc 31.4 g/dL (32-36); Mean Corpuscular Hgb 31.2 pg (27.0-32.0); Mean Corpuscular Volume 99.4 fL (80-94); Platelet Count 300 K/mm3 (150-450); RBC Distribution Width CV 16.2 % (11.6-14.6); RBC Distribution Width SD 57.7 fl (35.1-43.9); Red Blood Count 3.14 M/mm3 (4.6-6.2); White Blood Count 7.3 K/mm3 (4.4-11.0)
[2021-01-14 10:00] LABS: International Normalized Ratio 2.8
== END 2021-01-14 18:00 | disposition home or self-care (01) ==
LOC: LAB 08:42
PROVIDERS: Specialist
DX: Z95.820 Peripheral vascular angioplasty status with implants and grafts (principal)
CPT/HCPCS: 36415; 85027; 85610

== ENCOUNTER 2021-01-21 08:42 | Outpatient (RCR) | payer MEDICARE, OTHER, SELFPAY ==
[2021-01-21 10:00] LABS: International Normalized Ratio 4.1
[2021-01-21 10:13] LABS: Prothrombin Time (Protime)PT. 38.9 SECONDS (11.7-14.9)
== END 2021-01-21 18:00 | disposition home or self-care (01) ==
LOC: LAB 08:42
DX: Z95.820 Peripheral vascular angioplasty status with implants and grafts (principal); Z96.652 Presence of left artificial knee joint; Z79.01 Long term (current) use of anticoagulants
CPT/HCPCS: 36415; 85610

== ENCOUNTER 2025-03-11 08:25 | Observation (INO) | payer MEDICARE, OTHER, SELFPAY ==
--- NOTE | 2025-02-25 15:18 | PAT.ANESEVAL ---
Pre-Assessment Diagnosis/Proposed Procedure Planned Operative Procedure(s): (N/A) Cysto,Transurethral Resection Prostate Anesthesia History Anesthesia History - personal lines underwriter: Anesthesia History - personal lines underwriter Hx Hospitalization No 02/25/25 13:15 Any Problems With Anesthesia No 02/25/25 13:15 Cholinesterase deficiency No 02/25/25 13:15 You/Your Family Experience No 02/25/25 13:15 fever (hyperthermia) with Relationship Recent Exposure to Contagious No 01/05/21 05:45 Disease Does patient have nerve No 02/25/25 13:15 stimulator Patient instructed to have device shut off --Does patient have Pacemaker or ICD? When Was Last Pacemaker Check QUESTION #4 FULL TEXT: You/Your Family Experience fever (hyperthermia) with Anesthesia Last Oral Intake Last Oral intake: Last Oral Intake NPO since Meds taken in AM with sips of water? Meds patient instructed to take am of surgery PONV PONV - personal lines underwriter: PONV - personal lines underwriter Female No 02/25/25 13:15 HX of Motion Sickness No 02/25/25 13:15 HX of N/V After Surgery No 02/25/25 13:15 Non-Smoker Yes 02/25/25 13:15 Duration of Surgery greater Yes 02/25/25 13:15 than 60 minutes Number of Risk Factors 2 02/25/25 13:15 PONV Score Moderate Risk 02/25/25 13:15 Height & Weight Height & Weight: Anesthesia: Height & Weight Height 6 ft 4 in 01/05/21 12:51 Respiratory Assessment Respiratory Assessment - personal lines underwriter: Respiratory Tract Infection Hx - personal lines underwriter Hx Respiratory Tract Infection No 02/25/25 13:15 STOP Sleep Apnea STOP Sleep Apnea - personal lines underwriter: STOP Sleep Apnea - personal lines underwriter Hx Hypertension No 02/25/25 13:15 Hx Sleep Apnea Yes 02/25/25 13:15 CPAP Yes 02/25/25 13:15 BIPAP No 02/25/25 13:15 Do you snore loudly (louder than talking or can be heard Do you often feel tired/ fatigued/ sleepy during daytime? Has anyone observed you stop breathing during sleep? STOP Results Positive 02/25/25 13:15 QUESTION #5 FULL TEXT : Do you snore loudly (louder than talking or can be heard through closed doors)? Tobacco Use History Tobacco Use History - personal lines underwriter: Tobacco Use History - personal lines underwriter Tobacco Use Smoking Status Former smoker 02/25/25 13:15 Hx Tobacco Use No 02/25/25 13:15 Years Smoking Packs Smoked per Day Smoking Cessation Date was No - quit smoking greater 02/25/25 13:15 within the last 15 years than 15 years ago Hx Smoking Cessation Date 05/21/99 02/25/25 13:15 Hx Smoking Cessation Counseling Hematologic Medial History Hematologic Hx - personal lines underwriter: Hematologic Medical Hx - plastic surgery nurse Hx of Blood Transfusion No 02/25/25 13:15 Hx of Transfusion in last 3 No 02/25/25 13:15 Months Date of Last Transfusion (if within last 3 months) Ever experience any problems No 02/25/25 13:15 with transfusion(s)? Specify any problems Hx of Preganancy in last 3 N/A 02/25/25 13:15 Months Nurse Filling Out Transfusion NBUCHER 02/25/25 13:15 & Questions: Date: 02/25/25 02/25/25 13:15 Time: 13:18 02/25/25 13:15 Patient unable to answer at this time (ie. confused, unrespo /Reproduction History /Reproductive History - personal lines underwriter: /Reproductive Hx- personal lines underwriter Hx Now No 02/25/25 13:15 Gestational Age (in weeks): EDC: Hx Hx Para Hx Section SAB No 02/25/25 13:15 [facility] Medical History (Updated 02/25/25 @ 13:45 by Aye Rick) Peripheral arterial occlusive disease Insulin dependent diabetes mellitus BPH (benign prostatic hyperplasia) History of hiatal hernia CPAP (continuous positive airway pressure) dependence Sleep apnea GERD (gastroesophageal reflux disease) History of atrial fibrillation History of echocardiogram History of stress test Wears hearing aid Wears glasses Abrasion Diabetes Ambulates with cane Arthritis Prostate disease High cholesterol Excessive bleeding Easy bruising Restless legs Dietary restriction Heartburn Former smoker Shortness of breath on exertion History of edema History of pain when walking Hypertension Home Medications Medication Instructions Recorded Last Taken Type furosemide 20 mg tablet 40 mg PO DAILY EDEMA 12/29/20 01/04/21 08:00 History gabapentin 300 mg capsule 300 mg PO TID NEUROPATHY 12/29/20 01/04/21 08:00 History insulin glargine 100 unit/mL (3 30 unit subcut QPM DIABETES 12/29/20 01/04/21 08:00 History mL) subcutaneous pen metformin 1,000 mg tablet 1,000 mg PO BID DIABETES 12/29/20 01/02/21 History potassium chloride 10 mEq 20 meq PO DAILY HYPOKALEMIA 12/29/20 01/04/21 08:00 History capsule,extended release pravastatin 80 mg tablet 80 mg PO DAILY HIGH CHOLESTEROL 12/29/20 01/04/21 08:00 History tamsulosin 0.4 mg capsule (Flomax) 0.4 mg PO BID BPH 12/29/20 01/04/21 08:00 History apixaban 5 mg tablet (Eliquis) 5 mg PO BID AFIB 02/25/25 Unknown History clopidogrel 75 mg tablet 75 mg PO DAILY BLOOD THINNER 02/25/25 Unknown History donepezil 5 mg tablet 5 mg PO QHS MEMORY 02/25/25 Unknown History empagliflozin 25 mg tablet 12.5 mg PO DAILY DIABETES 02/25/25 Unknown History (Jardiance) finasteride 5 mg tablet 5 mg PO DAILY BPH 02/25/25 Unknown History metoprolol tartrate 50 mg tablet 50 mg PO BID AFIB 02/25/25 Unknown History oxybutynin chloride 5 mg tablet 5 mg PO BID PRN bladder spasms 02/25/25 Unknown History pantoprazole 40 mg tablet,delayed 40 mg PO DAILY GERD 02/25/25 Unknown History release pyridostigmine bromide 60 mg tablet 60 mg PO Q6H MYASTHENIA GRAVIS 02/25/25 Unknown History semaglutide 1 mg/dose (4 mg/3 mL) 1 mg subcut QWEEK DIABETES 02/25/25 Unknown History subcutaneous pen injector (Ozempic) Allergy/AdvReac Type Severity Reaction Status Date / Time No Known Allergies Allergy Verified 02/25/25 13:07 Surgical History History of left knee replacement History of cataract extraction History of lumbar discectomy History of ankle surgery History of total knee replacement (TKR) History of elbow surgery History of carpal tunnel release History of inguinal hernia repair, bilateral History of umbilical hernia repair History of carotid endarterectomy History of femoropopliteal bypass Social History Smoking Status: Former smoker Audit: Pertinent Findings Pertinent Findings Echo (EF%) pertinent findings: Echo 01/15/2025. Ejection fraction is normal at 55 to 60%. No significant valvular disease. No pericardial effusion. Consult pertinent findings: Cardiology note 02/17/2025. Past medical history pertinent for type 2 diabetes, abdominal aortic aneurysm s/p repair in 2001, total knee arthroplasty January 2013, and left knee December 2020, left carotid endarterectomy, EVAR/aortic aneurysm repair in June 2021. History of A-fib after a fall in January 2021 secondary to sepsis and UTI. Plan. Echocardiogram returned grossly normal. Would recommend stopping the Eliquis 2 days prior to surgery and the Plavix 5 days prior to surgery. The can resume the medications the day after surgery. Recommendation Anesthesia Recommendation Anesthesia recommendation: OPTIMIZED for anesthesia
[2025-03-11] VITALS (18 sets, daily range): BP systolic 110–142; BP diastolic 36–90; PULSE 44–67; RESP 12–18; TEMP 36.1–36.7; O2SAT 96–100; BMI 31.1
--- OUTSIDE RECORDS SUMMARY | 2025-03-11 05:57 | XMS RPT_ITS | CCD ---
Author Organization [facility] Care Team Providers Care Broommaker Name Role Phone Grant Willson Admitting Unavailable Grant Willson Attending Unavailable Grant Willson Referring Unavailable BLAKE CAMACHO Primary Care Unavailable Results Test Name Value Interpretation Reference Range Facil ity MR/PATRobert 02-25-2025 MR/BETO [facility] Medical Records Department [address] [place] [address] PAT - Anesthesia 02/25/25 1518 MR#: [id number] Acct: [id number] Name: BOGDAN MCCOLLUM Rep #: [id number] : 1945 79 From: Raheem Espinoza MD PCP: ROBIN BARRERA Status:PRE IN Y Race: C Location: [facility] Pre-Assessment Diagnosis/Proposed Procedure Planned Operative Procedure(s): (N/A) Cysto,Transurethral Resection Prostate Anesthesia History Anesthesia History - group account director: Anesthesia History - group account director Hx Hospitalization No 02/25/25 13:15 Any Problems With Anesthesia No 02/25/25 13:15 Cholinesterase deficiency No 02/25/25 13:15 You/Your Family Experience No 02/25/25 13:15 fever (hyperthermia) with Relationship Recent Exposure to Contagious No 01/05/21 05:45 Disease Does patient have nerve No 02/25/25 13:15 stimulator Patient instructed to have device shut off --Does patient have Pacemaker or ICD? When Was Last Pacemaker Check QUESTION #4 FULL TEXT: You/Your Family Experience fever (hyperthermia) with Anesthesia Last Oral Intake Last Oral intake: Last Oral Intake NPO since Meds taken in AM with sips of water? Meds patient instructed to take am of surgery PONV PONV - group account director: PONV - group account director Female No 02/25/25 13:15 HX of Motion Sickness No 02/25/25 13:15 HX of N/V After Surgery No 02/25/25 13:15 Non-Smoker Yes 02/25/25 13:15 Duration of Surgery greater Yes 02/25/25 13:15 than 60 minutes Number of Risk Factors 2 02/25/25 13:15 PONV Score Moderate Risk 02/25/25 13:15 Height Weight Height Weight: Anesthesia: Height Weight Height 6 ft 4 in 01/05/21 12:51 Respiratory Assessment Respiratory Assessment - group account director: Respiratory Tract Infection Hx - group account director Hx Respiratory Tract Infection No 02/25/25 13:15 STOP Sleep Apnea STOP Sleep Apnea - group account director: STOP Sleep Apnea - group account director Hx Hypertension No 02/25/25 13:15 Hx Sleep Apnea Yes 02/25/25 13:15 CPAP Yes 02/25/25 13:15 BIPAP No 02/25/25 13:15 Do you snore loudly (louder than talking or can be heard Do you often feel tired/ fatigued/ sleepy during daytime? Has anyone observed you stop breathing during sleep? STOP Results Positive 02/25/25 13:15 QUESTION #5 FULL TEXT : Do you snore loudly (louder than talking or can be heard through closed doors)? 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 Specify any problems Hx of Preganancy in last 3 N/A 02/25/25 13:15 Months Nurse Filling Out Transfusion NBUCHER 02/25/25 13:15 Questions: Date: 02/25/25 02/25/25 13:15 Time: 13:18 02/25/25 13:15 Patient unable to answer at this time (ie. 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 BPH (benign prostatic hyperplasia) History of hiatal hernia CPAP (continuous positive airway pressure) dependence Sleep apnea GERD (gastroesophageal reflux disease) History of atrial fibrillation History of echocardiogram History of stress test Wears hearing aid Wears glasses Abrasion Diabetes Ambulates with cane Arthritis Prostate disease High cholesterol Excessive bleeding Easy bruising Restless legs Dietary restriction Heartburn Former smoker Shortness of breath on exertion History of edema History of pain when walking Hypertension Home Medications ???Medication ???Instructions ???Recorded ???Last Taken ???Type furosemide 20 mg tablet 40 mg PO DAILY EDEMA 12/29/2012/19 08:00 History gabapentin (more content not included)... Normal [facility] Encounters Encounter Date Encounter Type Care Provider Facility Start: 03-11-2025 [facility] Grant Joshua lity:[facility] Payers Date Payer Category Payer Medicare [id number] 2025 Self-pay 2025 Unknown [id number] Unknown [id number] Summary Purpose Family History No Family History Records Found Advance Directives No Advanced Directives Records Found Additional Source Comments (unrecognized sect ion and content) No Status Records Found INFORMATION SOURCE (unrecogn ized section and content) DATE CREATED AUTHOR 03/10/2025 [facility] FOR RECORDS PERTAINING TO PATIENTS WHO ARE OR HAVE BEEN ENROLLED IN A CHEMICAL DEPENDENCY/SUBSTANCEABUSE PROGRAM, SOME INFORMATION MAY BE OMITTED. This clinical summary was aggregated from multiple sources. Caution should be exercised in using it in the provision of clinical care. This summary normalizes information from multiple sources, and as a consequence, information in this document may materially change the coding, format and clinical context of patient data. In addition, data may be omitted in some cases. CLINICAL DECISIONS SHOULD BE BASED ON THE PRIMARY CLINICAL RECORDS. [facility]. provides no warranty or guarantee of the accuracy or completeness of information in this document.
[2025-03-11] MEDS: Lactated Ringers 1,000 ML 15 ML IV (06:47)
--- NOTE | 2025-03-11 06:48 | PRE.ANES_ITS ---
ASA Classification* ASA Classification ASA Classification: 2 Assessment & Plan Anesthesia* Anesthesia Assessment Anesthesia Assessment: Discussed sedation and/or anesthesia options, risks, benefits, and alternatives with patient/parents/legal guardian/POA. Questions invited. The patient/parents/legal guardian/POA seems to understand and agrees to proceed with anesthesia plan. Reviewed the physical assessment, medical history, allergy history and patient home medications list prior to surgery/procedure/anesthetic and documented any changes. Performed airway and anesthesia risk assessments. Anesthesia Type Anesthesia Type: General Anesthesia Focused Assessment* Temperature: 97.0 F Pulse Rate: 54 Blood Pressure: 133/90 Respiratory Rate: 16 Pulse Ox: 99 Airway Assessment Mouth opens: >3 cm Mallampati Score: II Labs Anesthesia Preop lab: CBC WBC, (4.4-11.0) 7.3 K/mm3 01/14/21, 08:46 RBC, (4.6-6.2) 3.14 M/mm3 L 01/14/21, 08:46 Hgb, (13.0-16.5) 9.8 g/dL L 01/14/21, 08:46 Hct, (40-54) 31.2 % L 01/14/21, 08:46 Plt Count, (150-450) 300 K/mm3 01/14/21, 08:46 CHEMISTRY Potassium, (3.5-5.1) 4.4 mmol/L 01/06/21, 06:45 Sodium, (136-145) 140 mmol/L 01/06/21, 06:45 Magnesium, (1.6-2.6) 2.0 mg/dL 12/31/20, 08:22 BUN, (7-18) 18 mg/dL 01/06/21, 06:45 Creatinine, (0.70-1.30) 0.81 mg/dL 01/06/21, 06:45 Glucose, (74-106) 124 mg/dL H 01/06/21, 06:45 POC Glucose, (70-110) 132 mg/dL H 01/06/21, 08:12 COAG PT, (11.7-14.9) 38.9 SECONDS H 01/21/21, 08:44 Pre-Assessment Diagnosis/Proposed Procedure Planned Operative Procedure(s): (N/A) Cysto,Transurethral Resection Prostate Anesthesia History 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 When Was Last Pacemaker Check QUESTION #4 FULL TEXT: You/Your Family Experience fever (hyperthermia) with Anesthesia Last Oral Intake Last Oral intake: Last Oral Intake NPO since 18:00 03/11/25 06:33 Meds taken in AM with sips of water? Meds patient instructed to take am of surgery PONV PONV - automotive parts counter associate: PONV - automotive parts counter associate Female No 02/25/25 13:15 HX of Motion Sickness No 02/25/25 13:15 HX of N/V After Surgery No 02/25/25 13:15 Non-Smoker Yes 02/25/25 13:15 Duration of Surgery greater Yes 02/25/25 13:15 than 60 minutes Number of Risk Factors 2 02/25/25 13:15 PONV Score Moderate Risk 02/25/25 13:15 Height & Weight Height & Weight: Anesthesia: Height & Weight Height 6 ft 4 in 03/11/25 06:33 Weight: 116 kg 03/11/25 06:33 Body Mass Index (BMI) 31.1 03/11/25 06:33 Respiratory Assessment Respiratory Assessment - automotive parts counter associate: Respiratory Tract Infection Hx - automotive parts counter associate Hx Respiratory Tract Infection No 02/25/25 13:15 STOP Sleep Apnea STOP Sleep Apnea - automotive parts counter associate: STOP Sleep Apnea - automotive parts counter associate Hx Hypertension No 02/25/25 13:15 Hx Sleep Apnea Yes 02/25/25 13:15 CPAP Yes 02/25/25 13:15 BIPAP No 02/25/25 13:15 Do you snore loudly (louder than talking or can be heard Do you often feel tired/ fatigued/ sleepy during daytime? Has anyone observed you stop breathing during sleep? STOP Results Positive 02/25/25 13:15 QUESTION #5 FULL TEXT : Do you snore loudly (louder than talking or can be heard through closed doors)? 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 Specify any problems Hx of Preganancy in last 3 N/A 02/25/25 13:15 Months Nurse Filling Out Transfusion NBUCHER 02/25/25 13:15 & Questions: Date: 02/25/25 02/25/25 13:15 Time: 13:18 02/25/25 13:15 Patient unable to answer at this time (ie. 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 BPH (benign prostatic hyperplasia) History of hiatal hernia CPAP (continuous positive airway pressure) dependence Sleep apnea GERD (gastroesophageal reflux disease) History of atrial fibrillation History of echocardiogram History of stress test Wears hearing aid Wears glasses Abrasion Diabetes Ambulates with cane Arthritis Prostate disease High cholesterol Excessive bleeding Easy bruising Restless legs Dietary restriction Heartburn Former smoker Shortness of breath on exertion History of edema History of pain when walking Hypertension Home Medications Medication Instructions Recorded Last Taken Type furosemide 20 mg tablet 40 mg PO DAILY EDEMA 1 01/04/21 08:00 History Held on 03/11/25. Instructions: MD Ordered gabapentin 300 mg capsule 300 mg PO TID NEUROPATHY 04/1003/10/25 History insulin glargine 100 unit/mL (3 30 unit subcut QPM ERON BETES 12/29/20 03/10/25 History mL) subcutaneous pen metformin 1,000 mg tablet 1,000 mg PO BID DIABETES 04/1003/07/25 History potassium chloride 10 mEq 20 meq PO DAILY HYPOKALEMIA 12/29/20 01/04/21 08:00 History capsule,extended release Held on 03/11/25. Instructions: MD Ordered pravastatin 80 mg tablet 80 mg PO DAILY HIGH CHOLESTE ROL 12/29/20 03/10/25 History tamsulosin 0.4 mg capsule (Flomax) 0.4 mg PO BID BPH 0 12/29/20 03/10/25 History apixaban 5 mg tablet (Eliquis) 5 mg PO BID AFIB 03/07/25 History clopidogrel 75 mg tablet 75 mg PO DAILY BLOOD THINNER 02/25/25 02/28/25 History donepezil 5 mg tablet 5 mg PO QHS MEMORY 02/25/25 03/10/25 History empagliflozin 25 mg tablet 12.5 mg PO DAILY DIABETES 1 03/07/25 History (Jardiance) finasteride 5 mg tablet 5 mg PO DAILY BPH 02/25/25 1 History metoprolol tartrate 50 mg tablet 50 mg PO BID AFIB 01/1203/11/25 05:00 History oxybutynin chloride 5 mg tablet 5 mg PO BID PRN bladde r spasms 02/25/25 03/10/25 History pantoprazole 40 mg tablet,delayed 40 mg PO DAILY GERD 02/25/25 03/11/25 05:00 History release pyridostigmine bromide 60 mg tablet 60 mg PO Q6H [facility] GRAVIS 02/25/25 03/10/25 History semaglutide 1 mg/dose (4 mg/3 mL) 1 mg subcut QWEEK DI ABETES 02/25/25 02/23/25 History subcutaneous pen injector (Ozempic) Allergy/AdvReac Type Severity Reaction Status Date / Time No Known Allergies Allergy Verified 03/11/25 06:25 Surgical History History of left knee replacement History of cataract extraction History of lumbar discectomy History of ankle surgery History of total knee replacement (TKR) History of elbow surgery History of carpal tunnel release History of inguinal hernia repair, bilateral History of umbilical hernia repair History of carotid endarterectomy History of femoropopliteal bypass Social History Smoking Status: Former smoker Review of Systems (Anesthesia) ROS Narrative System reviewed and no additional complaints, except as documented.
[2025-03-11] MEDS: Lactated Ringers 500 ML IV (07:27)
--- NOTE | 2025-03-11 07:30 | PROS_PTH ---
PATIENT: BOGDAN MCCOLLUM LOC: MS3 U#:[id number] AGE/SX: 79/M ROOM: [facility]305 RE03/11/[address]: Dr. Grant Willson MD : 1945 BED: 1 DIS: 03/12/2025 SPEC #: [id number] RECD: 03/11/25 11:29 STATUS: ABBY KAMILLA #: [id number] LINDY: 03/11/25 07:[address]: Grant Willson DEPT: SURGICAL PATHOLOGY RECD BY: Emeka Billings Tissues: A - Prostate, NOS Procedures: Surgery Specimen Level IV HEADER OPERATION: Cystoscopy, transurethral resection of prostate PRE-OP DIAGNOSIS: Benign prostatic hyperplasia without lower urinary tract symptoms, feeling of incomplete bladder emptying, urge incontinence TISSUE SUBMITTED: A- Prostate tissue MICROSCOPIC DIAGNOSIS A. Prostate, cystoscopy and transurethral resection: * Fibromuscular and adenomatous hyperplasia MICROSCOPIC DESCRIPTION Slides are reviewed. GROSS DESCRIPTION A. Received in formalin labeled with the patient's name and date of . Designated as " prostate tissue" is a 8.8 g, 5.6 x 4.8 x 0.8 cm aggregate of irregular, clemens, rubbery and cauterized tissue fragments. Entirely submitted in 5 cassettes. [place] 03/11/2025 CPT:41312
[2025-03-11] MEDS: Lidocaine 1% (5 ml sdv) 5 ML Vial IV (07:33)
[2025-03-11] MEDS: Cefazolin 1 GM/5 ML Vial 2 GM IV (07:35)
[2025-03-11] MEDS: 0.9% Normal Saline (Pres. free 10 ML Vial (07:50)
[2025-03-11] MEDS: fentaNYL 100 MCG/2 ML Ampul 200 MCG IV (08:02)
--- NOTE | 2025-03-11 08:40 | PCM.POST.ANE ---
Anesthesia: Postop Eval I Current Vital Signs Temperature: 97 F Pulse Rate: 54 Blood Pressure: 110/61 Respiratory Rate: 16 Pulse Ox: 98 Oxygen Delivery Method: Room Air Assessment Airway patent: Yes Spontaneous unlabored respirations: Yes Mental status: Awake and Calm nausea: No Vomiting: No Anesthesia Complication: No Fluid Hydration Crystalloid volume administer (ml): 500 Total IV fluid infused: 500 Progress Note Anesthesia document: Postop Eval 1 completed: Yes
--- NOTE | 2025-03-11 08:53 | POSTOPAN2_ITS ---
Anesthesia Postop Eval I Sum Postop Eval Completion status Anesthesia document: Postop Eval 1 completed: Yes Anesthesia Postop Eval I Summary Anesthesia Postop Eval I Summary: Anesthesia Postop Eval I: Assessment Summary Airway patent Yes 03/11/25 08:41 RAW CHEESE WORKER.GDOTT Spontaneous unlabored Yes 03/11/25 08:41 RAW CHEESE WORKER.GDOTT respirations Mental status Awake,Calm 03/11/25 08:41 RAW CHEESE WORKER.GDOTT nausea No 03/11/25 08:41 RAW CHEESE WORKER.GDOTT Vomiting No 03/11/25 08:41 RAW CHEESE WORKER.GDOTT Anesthesia Postop Eval I: Fluid Summary Crystalloid volume administer 500 03/11/25 08:41 RAW CHEESE WORKER.GDOTT (ml) Colloids volume administered ( ml) Blood Product volume administered (ml) Total IV fluid infused 500 03/11/25 08:41 RAW CHEESE WORKER.GDOTT Anesthesia Postop Eval I: Summary Notes Anesthesia Complication No 03/11/25 08:41 RAW CHEESE WORKER.GDOTT Anesthesia Complication Comment: Post-operative progress note Anesthesia: Postop Eval II Evaluation Mental status: Awake and Apprehensive Pain Level: 1 nausea: No Vomiting: No
--- NOTE | 2025-03-11 08:53 | PCM.POSTANE2 ---
Anesthesia Postop Eval I Sum Postop Eval Completion status Anesthesia document: Postop Eval 1 completed: Yes Anesthesia Postop Eval I Summary Anesthesia Postop Eval I Summary: Anesthesia Postop Eval I: Assessment Summary Airway patent Yes 03/11/25 08:41 ASSOCIATE ARTISTIC DIRECTOR.GDOTT Spontaneous unlabored Yes 03/11/25 08:41 ASSOCIATE ARTISTIC DIRECTOR.GDOTT respirations Mental status Awake,Calm 03/11/25 08:41 ASSOCIATE ARTISTIC DIRECTOR.GDOTT nausea No 03/11/25 08:41 ASSOCIATE ARTISTIC DIRECTOR.GDOTT Vomiting No 03/11/25 08:41 ASSOCIATE ARTISTIC DIRECTOR.GDOTT Anesthesia Postop Eval I: Fluid Summary Crystalloid volume administer 500 03/11/25 08:41 ASSOCIATE ARTISTIC DIRECTOR.GDOTT (ml) Colloids volume administered ( ml) Blood Product volume administered (ml) Total IV fluid infused 500 03/11/25 08:41 ASSOCIATE ARTISTIC DIRECTOR.GDOTT Anesthesia Postop Eval I: Summary Notes Anesthesia Complication No 03/11/25 08:41 ASSOCIATE ARTISTIC DIRECTOR.GDOTT Anesthesia Complication Comment: Post-operative progress note Anesthesia: Postop Eval II Evaluation Mental status: Awake and Apprehensive Pain Level: 1 nausea: No Vomiting: No
--- NOTE | 2025-03-11 10:33 | SUR.PHASEII ---
PATIENT IS BACK IN HIS ROOM IN WAITING ON A BED UPSTAIRS. DENIES PAIN OR NAUSEA. CBI RUNNING.
--- NOTE | 2025-03-11 10:49 | OP.PCM_ITS ---
Operative Report (Standard) Operative Information Date of Procedure: 03/11/25 Pre-Operative Diagnosis: BPH with obstruction and overactive bladder Post-Operative Diagnosis: The same Surgery/Procedure Performed: Transurethral section of the prostate and injection of Botox in the bladder 100 units diplomatic courier: No Type of Anesthesia: General RN Documented Start/Stop Times: Operation Date: 03/11/25 07:30 Case Time Into Pre-Op 03/11/25 05:57 Out of Pre-Op 03/11/25 07:23 Anesthesia Start 03/11/25 07:27 Into Room 03/11/25 07:27 Procedure Start 03/11/25 07:44 Procedure End 03/11/25 08:19 Anesthesia End 03/11/25 08:28 Out of Room 03/11/25 08:28 Into Recovery 03/11/25 08:30 Out of Recovery 03/11/25 09:53 Into Phase II Recovery 03/11/25 09:54 Procedure Start Time: 07:44 Procedure Stop Time: 08:19 Select all DRAINS/GRAFTS/IMPLANTS that apply: Drains Drain details: 22 [place] three-way Fuentes Estimated Blood Loss: 10 cc Specimen collected: Yes Description of specimen(s) removed: Prostate tissue Description of surgery: 79-year-old male with a history of BPH with obstruction at this point ureter describes a very weak stream difficulty emptying the bladder but he also has severe urgency when he has to go to the bathroom he can barely hold his urine and has accidents had to wear depends all the time. On evaluation on cystoscopy found to have like obstructive prostate and also very thickened trabeculated bladder I think he has an overactive bladder with obstruction Linnea try to treat both conditions again inject the bladder with Botox 100 units to help calm down the bladder medications is failed for this in the past and then also organ to do a transurethral section of prostate to alleviate the obstruction he un derstands he might pry get worse after surgery but then hopefully with time things will get better and bladder control improve he might need a second lobe Botox injection in the future as well Patient was taken back to the operating room after induction of anesthesia he was placed in dorsolithotomy position. Penis and testicles were prepped and draped in usual fashion he was uncircumcised was then not able to retract the foreskin but we left this alone and then I went into the bladder with a 21 [place] rigid cystourethroscope entire length of the urethra was clear of any strictures or tumors sphincter was intact verumontanum was identified prostate was obstructive with bilateral hypertrophy and a large median lobe and inside the bladder had fairly heavy trabeculation I then prepared 100 units of Botox in the back table and injected the bladder with Botox 100 units total in 10 different sites after the injection was done then we removed the cystoscope and we went back in with a 26 [place] continuous-flow bipolar Olympus resectoscope identified the anatomy identified the bladder neck alert left and right ureteral orifice were identified and then I proceeded with my resection I resected the median lobe I then resected the right lobe of the prostate resected the left lobe the prostate and then came back very carefully resected make sure there is no obstruction struct of tissue then cauterized all the resection site to obtain hemostasis all the chips were removed hemostasis was obtained had a nice open flow sphincter was intact and then put a catheter in the bladder with continuous bladder irrigation anesthetic was reversed and he was taken back to the PACU in stable condition he will be kept overnight for irrigation and we will do a voiding trial tomorrow Surgical Findings: An obstructing prostate heavily trabeculated bladder Complications Complications: No Admit VTE Documentation VTE Present on Admission: No VTE Mechan Device Prophylaxis: SCD's VTE Pharm Prophylaxis ordered?: No
--- NOTE | 2025-03-11 10:53 | DCINST_ITS ---
Discharge Instructions DC O2, CPAP, BIPAP needs Home O2 Discharge instructions: No Dressing / Incision Discharge Activity: Return to Normal Activity and May Not Drive (while taking narcotic pain medications.) Dressing / Incision Call your doctor if you observe: Fever of 101 or Higher Follow Up Care Please Follow Up With: Grant Willson MD When: Call [phone] for an appointment Test Results: Test results from this visit will be discussed in further detail at your follow- up appointment, if applicable. Discharge Plan Admission Primary Reason for Your Visit: turp Attending Provider: Grant Willson Primary Care Provider: ROBIN BARRERA Instructions Print Language: Portuguese Discharge Orders/Prescriptions Prescriptions: New ciprofloxacin HCl [Cipro] 500 mg tablet 500 mg PO BID Qty: 14 0RF Continued potassium chloride 10 mEq Capsule, Extended Release 20 meq PO DAILY pravastatin 80 mg Tablet 80 mg PO DAILY metformin 1,000 mg Tablet 1,000 mg PO BID gabapentin 300 mg Capsule 300 mg PO TID furosemide 20 mg Tablet 40 mg PO DAILY insulin glargine 100 unit/mL (3 mL) Insulin Pen 30 unit SUBCUT QPM Jardiance 25 mg tablet 12.5 mg PO DAILY Ozempic 1 mg/dose (4 mg/3 mL) pen injector 1 mg subcut QWEEK metoprolol tartrate 50 mg tablet 50 mg PO BID pyridostigmine bromide 60 mg tablet 60 mg PO Q6H donepezil 5 mg tablet 5 mg PO QHS Patient Comments: TAKE ONE TABLET BY MOUTH AT BEDTIME ONE TIME DAILY pantoprazole 40 mg tablet,delayed release (DR/EC) 40 mg PO DAILY Held Eliquis 5 mg tablet 5 mg PO BID Hold Instructions: Resume on 03/25/25. clopidogrel 75 mg tablet 75 mg PO DAILY Hold Instructions: Resume on 03/25/25. Patient Comments: TAKE ONE TABLET BY MOUTH ONE TIME DAILY Discontinued tamsulosin [Flomax] 0.4 mg Capsule 0.4 mg PO BID finasteride 5 mg tablet 5 mg PO DAILY oxybutynin chloride 5 mg tablet 5 mg PO BID PRN (Reason: bladder spasms) Referrals / Follow Up: ROBIN BARRERA [Other] Grant Willson MD [Med Staff - Active Staff, Urology] Disposition Disposition (needs filled in before D/C Order can be placed): Home, Self Care
--- OUTSIDE RECORDS SUMMARY | 2025-03-11 12:24 | XMS RPT_ITS | CCD ---
Author Organization [facility] Care Team Providers Care Ob/Gyn Physician Name Role Phone Grant Willson Admitting Unavailable Grant Willson Attending Unavailable Grant Willson Referring Unavailable BLAKE CAMACHO Primary Care Unavailable Results Test Name Value Interpretation Reference Range Facil ity MR/PATRobert 02-25-2025 MR/BETO [facility] Medical Records Department [address] [place] [address] PAT - Anesthesia 02/25/25 1518 MR#: [id number] Acct: [id number] Name: BOGDAN MCCOLLUM Rep #: [id number] : [id number] 79 From: Raheem Espinoza MD PCP: ROBIN BARRERA Status:PRE IN Y Race: C Location: [facility] Pre-Assessment Diagnosis/Proposed Procedure Planned Operative Procedure(s): (N/A) Cysto,Transurethral Resection Prostate Anesthesia History 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: 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 Hx Hospitalization No 02/25/25 13:15 Any Problems [...] take am of surgery PONV PONV - store custodian: PONV - store custodian Female No 02/25/25 13:15 HX of Motion [...] 01/05/21 12:51 Respiratory Assessment Respiratory Assessment - store custodian: Respiratory Tract Infection Hx - store custodian Hx Respiratory Tract Infection No 02/25/25 13:15 STOP Sleep Apnea STOP Sleep Apnea - store custodian: STOP Sleep Apnea - store custodian Hx Hypertension No 02/25/25 13:15 Hx Sleep [...] Tobacco Use History Tobacco Use History - store custodian: Tobacco Use History - store custodian Tobacco Use Smoking Status Former smoker 02/25/25 13:15 Hx Tobacco Use No 02/25/25 13:15 Years Smoking Packs Smoked per Day Smoking Cessation Date was No - quit smoking greater 02/25/25 13:15 within the last 15 years than 15 years ago Hx Smoking Cessation Date 05/21/99 02/25/25 13:15 Hx Smoking Cessation Counseling Hematologic Medial History Hematologic Hx - store custodian: 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 Normal [facility] Encounters Encounter Date Encounter Type Care Provider Facility Start: 03-11-2025 [facility] Grant Joshua lity:[facility] Payers Date Payer Category Payer Medicare [id number] 2025 Self-pay 2025 Unknown [id number] Unknown [id number] Summary Purpose Family History No Family History Records Found Advance Directives No Advanced Directives Records Found Additional Source Comments (unrecognized sect ion and content) No Status Records Found INFORMATION SOURCE (unrecogn ized section and content) DATE CREATED AUTHOR 03/10/2025 [facility] FOR RECORDS PERTAINING TO PATIENTS WHO [...] BE BASED ON THE PRIMARY CLINICAL RECORDS. [facility] [employer] [facility] provides no warranty or guarantee of the accuracy or completeness of information in this document.
[2025-03-11] MEDS: Lactated Ringers 1,000 ML 125 ML IV ×2 (12:32→21:03)
[2025-03-11] MEDS: Potassium Chloride Oral Tablet 20 MEQ PO (13:09)
[2025-03-11] MEDS: Insulin Glargine-YFGN 100 UNIT/ML Pen 30 UNIT SC (21:08)
[2025-03-12 00:11] VITALS: BP 130/52; PULSE 65; RESP 15; TEMP 37.2; O2SAT 95
[2025-03-12 00:22] VITALS: BMI 31.1
[2025-03-12 04:22] VITALS: BMI 31.1
[2025-03-12 04:43] VITALS: BP 136/56; PULSE 67; RESP 15; TEMP 37; O2SAT 97
--- NOTE | 2025-03-12 07:20 | PCM.PN.BLA ---
Progress Note Status post TURP Fuentes catheter removed today we will see him back later today for checkup to see how he is going possible home later today
[2025-03-12 07:30] VITALS: BP 124/63; PULSE 72; RESP 17; TEMP 36.3; O2SAT 97
[2025-03-12 08:22] VITALS: BMI 31.1
[2025-03-12 08:23] VITALS: PULSE 87
[2025-03-12] MEDS: Potassium Chloride Oral Tablet 20 MEQ PO (08:24)
--- NOTE | 2025-03-12 09:00 | CASEMGMT ---
LUTHER Met with patient to complete LUTHER form. LUTHER form and its content were verbally explained and patient's questions were answered to the best of my ability. Patient voiced understanding and signed LUTHER form. Patient provided a copy of signed LUTHER form and original placed in patient's chart. Patient had no further questions. Patricia Jane, Discharge Planning Asst
[2025-03-12 10:25] VITALS: BP 124/63; PULSE 72; RESP 17; TEMP 36.3; O2SAT 97
[2025-03-12 11:31] VITALS: BP 110/78; PULSE 73; RESP 17; TEMP 36; O2SAT 86
== END 2025-03-12 16:09 | disposition home or self-care (01) ==
LOC: SDC 12:01 → MS3 12:02
PROVIDERS: Admitting Provider Urology; Referring Provider Urology; Visit Provider Urology
DX: N40.1 Benign prostatic hyperplasia with lower urinary tract symptoms (principal); I48.92 Unspecified atrial flutter; E11.9 Type 2 diabetes mellitus without complications; N13.8 Other obstructive and reflux uropathy; R39.12 Poor urinary stream; R39.14 Feeling of incomplete bladder emptying; R32 Unspecified urinary incontinence; N32.81 Overactive bladder; Z79.899 Other long term (current) drug therapy; Z79.02 Long term (current) use of antithrombotics/antiplatelets; Z79.01 Long term (current) use of anticoagulants; Z79.84 Long term (current) use of oral hypoglycemic drugs; G47.30 Sleep apnea, unspecified; R06.02 Shortness of breath; R35.0 Frequency of micturition
CPT/HCPCS: 52601; 00914; 52287; 82962; 88305; 96361; 96365; 96366; 99221; G0378; J0585; J0744; J2405